=== PATIENT | male | born 1980 | race African-American/Black ===

== ENCOUNTER 2017-07-29 10:51 | Emergency (ER) | payer OTHER ==
[~2017-07-29] VITALS: Ht 175.3 cm; Wt 75.8 kg
[~2017-07-29 10:51] MED LIST: MOTRIN800 MG PO; NORCO 10/3251 TABLET PO
[2017-07-29 11:38] LABS: HEMATOCRIT 39.7 % (38.0-50.0); MCH 32.4 PG (29.0-34.0); MEAN PLAT.VOLUME 9.7 uM^3 (9.0-12.4); PLATELET COUNT 287 K/uL (156-360); RBC DIS.WIDTH-CV 11.6 % (11.8-14.6); RBC DIS.WIDTH-SD 38.6 % (39-53); RED BLOOD COUNT 4.41 M/uL (4.00-5.50); WHITE BLOOD COUNT 9.9 K/uL (4.1-10.2)
[2017-07-29 11:52] LABS: CHLORIDE 104 mEq/L (99-109); POTASSIUM 3.8 mEq/L (3.7-5.4); SODIUM 142 mEq/L (136-147)
[2017-07-29 11:53] LABS: GLUCOSE 97 mg/dL (70-99)
[2017-07-29 11:55] LABS: ANION GAP 12 MEQ/L (2-14)
[2017-07-29 11:57] LABS: GFR ESTIMATE (CALCULATED) > 59 mL/min/
[2017-07-29 11:58] LABS: UREA NITROGEN (BUN) 11 mg/dL (9-23)
[2017-07-29] MEDS ORDERED: VENTOLIN HFA18 GM IH (12:55)
[2017-07-29] MEDS ORDERED: BENADRYL50 MG PO (13:02)
[2017-07-29 13:23] VITALS: BP 110/75
== END 2017-07-29 13:24 | disposition home or self-care (01) ==
LOC: EME 10:51
DX: T54.91XA Toxic effect of unspecified corrosive substance, accidental (unintentional), initial encounter (principal); Y92.031 Bathroom in apartment as the place of occurrence of the external cause; R05 Cough; R09.81 Nasal congestion; H53.8 Other visual disturbances; J34.89 Other specified disorders of nose and nasal sinuses; J45.909 Unspecified asthma, uncomplicated; F17.200 Nicotine dependence, unspecified, uncomplicated
CPT/HCPCS: 71020; 80048; 85027; 99281; 99283

== ENCOUNTER 2018-02-20 22:29 | Emergency (ER) | payer OTHER ==
[~2018-02-20] VITALS: Ht 175.3 cm; Wt 74.2 kg
[~2018-02-20 22:29] MED LIST changes: +BENADRYL50 MG PO; +VENTOLIN HFA18 GM IH
[2018-02-21] MEDS ORDERED: PERCOCET 5/31 TABLET PO (00:54)
[2018-02-21] MEDS ORDERED: KEFLEX500 MG PO (00:54)
[2018-02-21 01:15] VITALS: BP 128/96
== END 2018-02-21 01:36 | disposition home or self-care (01) ==
LOC: EME 22:29
DX: S51.812A Laceration without foreign body of left forearm, initial encounter (principal); S61.411A Laceration without foreign body of right hand, initial encounter; W25.XXXA Contact with sharp glass, initial encounter; Z23 Encounter for immunization
CPT/HCPCS: 73090; 99281; 99284

== ENCOUNTER → 2018-02-21 | Outpatient (CLI) | payer OTHER ==
[~2018-02-21] MED LIST changes: +KEFLEX500 MG PO; +PERCOCET 5/31 TABLET PO
== END | disposition home or self-care (01) ==
LOC: RAD 17:00
DX: M66.332 Spontaneous rupture of flexor tendons, left forearm (principal)
CPT/HCPCS: 93971

== ENCOUNTER → 2018-02-24 | Outpatient (CLI) | payer OTHER | END | disposition home or self-care (01) | LOC: CDC 15:04 | DX: Z01.810 Encounter for preprocedural cardiovascular examination (principal); M66.332 Spontaneous rupture of flexor tendons, left forearm; M79.632 Pain in left forearm | CPT/HCPCS: 93000 ==